=== PATIENT | male | born 1960 | race American Indian/Alaskan Native ===

== ENCOUNTER 2016-12-18 11:12 | Inpatient (IN) | payer OTHER ==
[2016-12-18 11:19] LABS: Basophils % (Auto) 0.4 % (0.0-1.8); Eosinophils % (Auto) 1.2 % (0.0-4.3); Hematocrit 44.5 % (35.5-45.6); Hemoglobin 14.4 gm/dl (11.8-15.2); Mean Corpuscular HGB Conc 32 % (32-34); Mean Corpuscular Hemoglobin 27 pg (28-32); Mean Corpuscular Volume 84 fl (84-94); Platelet Count 177 K/mm3 (140-440); White Blood Count 9.1 K/mm3 (4.5-11.0)
--- NOTE | 2016-12-18 11:26 | Cat Scan Report ---
CT HEAD WITHOUT CONTRAST: HISTORY: Neurological deficit. Serial contiguous axial images were obtained through the cranium. Intravenous contrast material was not administered. The ventricles are normal in size and appearance. There is no mass effect or midline shift. No areas of abnormally increased or decreased attenuation are seen. No mass lesion is seen. The mastoid air cells and visualized portions of the sinuses are normal. Chronic right medial orbital wall fracture is noted. IMPRESSION: No acute intracranial process identified. These findings were discussed with Dr. Monte in the emergency department at 1122 hrs.
[2016-12-18 11:30] LABS: Anion Gap 17 mmol/L; BUN/Creatinine Ratio 14; Blood Urea Nitrogen 14 mg/dL (9-20); Carbon Dioxide 25 mmol/L (22-30); Chloride 102.8 mmol/L (98-107); Glucose 111 mg/dL (75-100); Potassium 4.1 mmol/L (3.6-5.0); Sodium 141 mmol/L (137-145)
[2016-12-18 11:34] LABS: INR 0.95 (0.87-1.13)
[2016-12-18 11:35] LABS: Partial Thromboplastin Time 25.9 Sec. (24.2-36.6)
--- NOTE | 2016-12-18 11:59 | XRay Report ---
AP CHEST: HISTORY: Stroke symptoms, CVA AP view of the chest demonstrates a normal mediastinal and cardiac contour with clear lungs and normal bony and soft tissue structures. IMPRESSION: Unremarkable AP chest.
[2016-12-18] MEDS ORDERED: NACL ONE ×2 (12:14→12:42)
--- NOTE | 2016-12-18 12:46 | Emergency Department Report ---
ED Neuro Deficit HPI - General Chief Complaint: Neuro Symptoms/Deficit Stated Complaint: POSS STROKE Time Seen by Provider: 12/18/16 11:45 Source: EMS Mode of arrival: Stretcher Limitations: Physical Limitation - History of Present Illness Initial Comments: aboriginal liaison officer informs me that the patient was detained last night for outstanding warrants. When the patient awoke at [facility] he was having difficulty with speech and in moving his left side. When he arrives at this facility he is unable to give me any reasonable historical information. He does not tell me his name or his age. His speech is somewhat mumbling and he is not following commands well. Paramedics state that they found him to have a possible left-sided facial weakness and left hemiparesthesias. His glucose was 120. His blood pressure was somewhat elevated in the field but on arrival it was reasonably normotensive after CT and without intervention. -: During the night Location: speech, left face, left arm, left leg Presenting Symptoms: Present: Weak/Paralyzed One Side History of same: No Place: other ([facility]) Severity: severe Quality: numb Improves With: none Worsens With: none On Anticoagulants: No Context: other (wake-up symptoms) Associated Symptoms: other (unable to obtain) Treatments Prior to Arrival: none - Related Data Allergies/Adverse Reactions: Allergies Allergy/AdvReac Type Severity Reaction Status Date / Time No Known Allergies Allergy Unverified 12/18/16 11:12 ED Review of Systems ROS: Stated complaint: POSS STROKE Other details as noted in HPI Comment: Unobtainable due to pts medical conditions ED Past Medical Hx - Past Medical History Previous Medical History?: Yes Additional medical history: stroke x2 no denies deficiets 2012 - Surgical History Past Surgical History?: Yes Additional Surgical History: plate under left eye in cheekbone - Social History Smoking Status: Current Every Day Smoker Substance Use Type: Alcohol ED Neuro Physical Exam - General Limitations: Physical Limitation General appearance: alert, anxious Suspected Stroke: Yes - Head Head exam: Present: atraumatic, normocephalic - Eye Eye exam: Present: normal appearance, other (no gross extraocular motor is the one hallway exam) - ENT ENT exam: Present: mucous membranes moist, other (left eye is somewhat proptotic ) - Neck Neck exam: Present: normal inspection. Absent: tenderness, meningismus - Respiratory Respiratory exam: Present: normal lung sounds bilaterally. Absent: respiratory distress - Cardiovascular Cardiovascular Exam: Present: regular rate, normal rhythm. Absent: systolic murmur, diastolic murmur, rubs, gallop - GI/Abdominal GI/Abdominal exam: Present: soft, normal bowel sounds. Absent: distended, tenderness, guarding, rebound, rigid - Rectal Rectal exam: Present: deferred - Extremities Exam Extremities exam: Present: normal inspection - Back Exam Back exam: Present: normal inspection - Neurological Exam Neurological exam: Present: alert, oriented X3. Absent: CN II-XII intact, motor sensory deficit - NIHSS Assessment Interval: Baseline 1a. Level of Consciousness: alert 1b. LOC Questions: answers no questions correctly 1c. LOC Commands: performs no tasks correctly 2. Best Gaze: normal 3. Visual: no visual loss 4. Facial Palsy: normal symmetrical movement 5b. Motor Arm Right: no drift 5a. Motor Arm Left: drift 6a. Motor Leg Left: drift 6b. Motor Leg Right: no drift 7. Limb Ataxia: absent 8. Sensory: normal 9. Best Language: severe aphasia 10. Dysarthria: mild/moderate dysarthria 11. Extinction/Inattention: no abnormality Total Score: 9 Stroke Severity: Moderate Stroke - Psychiatric Psychiatric exam: Present: normal affect, normal mood - Skin Skin exam: Present: warm, dry, intact, normal color. Absent: rash ED Course Vital Signs 12/18/16 12/18/16 12/18/16 11:15 11:25 11:32 Temperature 98.0 F Pulse Rate 54 L 52 L 55 L Respiratory 12 10 L Rate Blood Pressure 145/88 O2 Sat by Pulse 100 Oximetry 12/18/16 12/18/16 11:45 11:58 Temperature Pulse Rate 55 L Respiratory 12 16 Rate Blood Pressure 145/88 O2 Sat by Pulse 100 Oximetry - Reevaluation(s) Reevaluation #1: Nurses report to me that the patient is here giving a reasonable history. He states that he has a plate in his head due to previous eye trauma. He later amended that telling the nurse the plate is in his eye. There is no plate seen on his CT exam which is also normal without evidence of 2 prior strokes nor anything acute.Informs me that the patient is moving his left side while except his hand now. He was sent for a CT angiogram. It is uncertain to what degree this patient's symptoms are neurological versus conversion. The either case he is not a candidate for TPA due to his wake-up symptoms. I did find it appropriate to do a CT angiogram on the circumstances. He is admitted to Dr. Juarez's service for further stroke workup/telemetry bed. 12/18/16 12:53 - Lab Data Result diagrams: 12/18/16 11:14 12/18/16 11:14 Lab Results 12/18/16 12/18/16 12/18/16 Range/Units 11:14 11:14 11:14 WBC 9.1 (4.5-11.0) K/mm3 RBC 5.30 H (3.65-5.03) M/mm3 Hgb 14.4 (11.8-15.2) gm/dl Hct 44.5 (35.5-45.6) % MCV 84 (84-94) fl MCH 27 L (28-32) pg MCHC 32 (32-34) % RDW 15.0 (13.2-15.2) % Plt Count 177 (140-440) K/mm3 Lymph % (Auto) 37.7 H (13.4-35.0) % [place] % (Auto) 11.0 H (0.0-7.3) % Eos % (Auto) 1.2 (0.0-4.3) % Baso % (Auto) 0.4 (0.0-1.8) % Lymph # 3.4 (1.2-5.4) K/mm3 [place] # 1.0 H (0.0-0.8) K/mm3 Eos # 0.1 (0.0-0.4) K/mm3 Baso # 0.0 (0.0-0.1) K/mm3 Seg Neutrophils % 49.7 (40.0-70.0) % Seg Neutrophils # 4.5 (1.8-7.7) K/mm3 PT 13.2 (12.2-14.9) Sec. INR 0.95 (0.87-1.13) APTT 25.9 (24.2-36.6) Sec. Thrombin Time (15.1-19.6) Sec. Sodium 141 (137-145) mmol/L Potassium 4.1 (3.6-5.0) mmol/L Chloride 102.8 (98-107) mmol/L Carbon Dioxide 25 (22-30) mmol/L Anion Gap 17 mmol/L BUN 14 (9-20) mg/dL Creatinine 1.0 (0.8-1.5) mg/dL Estimated GFR > 60 ml/min BUN/Creatinine Ratio 14 % Glucose 111 H (75-100) mg/dL POC Glucose (70-105) Calcium 9.0 (8.4-10.2) mg/dL Troponin T < 0.010 (0.00-0.029) ng/mL NT-Pro-B Natriuret Pep (0-900) pg/mL 12/18/16 12/18/16 12/18/16 Range/Units 11:14 11:14 11:21 WBC (4.5-11.0) K/mm3 RBC (3.65-5.03) M/mm3 Hgb (11.8-15.2) gm/dl Hct (35.5-45.6) % MCV (84-94) fl MCH (28-32) pg MCHC (32-34) % RDW (13.2-15.2) % Plt Count (140-440) K/mm3 Lymph % (Auto) (13.4-35.0) % [place] % (Auto) (0.0-7.3) % Eos % (Auto) (0.0-4.3) % Baso % (Auto) (0.0-1.8) % Lymph # (1.2-5.4) K/mm3 [place] # (0.0-0.8) K/mm3 Eos # (0.0-0.4) K/mm3 Baso # (0.0-0.1) K/mm3 Seg Neutrophils % (40.0-70.0) % Seg Neutrophils # (1.8-7.7) K/mm3 PT (12.2-14.9) Sec. INR (0.87-1.13) APTT (24.2-36.6) Sec. Thrombin Time 19.7 H (15.1-19.6) Sec. Sodium (137-145) mmol/L Potassium (3.6-5.0) mmol/L Chloride (98-107) mmol/L Carbon Dioxide (22-30) mmol/L Anion Gap mmol/L BUN (9-20) mg/dL Creatinine (0.8-1.5) mg/dL Estimated GFR ml/min BUN/Creatinine Ratio % Glucose (75-100) mg/dL POC Glucose 104 (70-105) Calcium (8.4-10.2) mg/dL Troponin T (0.00-0.029) ng/mL NT-Pro-B Natriuret Pep 42.45 (0-900) pg/mL Critical Care Time: Yes Critical care time in (mins) excluding proc time.: 50 Critical care attestation.: If time is entered above; I have spent that time in minutes in the direct care of this critically ill patient, excluding procedure time. ED Disposition Clinical Impression: CVA (cerebral vascular accident) Qualifiers: CVA mechanism: unspecified Qualified Code(s): I63.9 - Cerebral infarction, unspecified Hypertension Qualifiers: Hypertension type: essential hypertension Qualified Code(s): I10 - Essential ( primary) hypertension Disposition: 09 OP ADMIT IP TO THIS HOSP Is pt being admited?: Yes Does the pt Need Aspirin: Yes Condition: Stable Instructions: Hypertension (ED) Time of Disposition: 12:55
[2016-12-18] MEDS: ASPIRIN PO SCH (13:03)
--- NOTE | 2016-12-18 13:10 | Cat Scan Report ---
CTA NECK: CTA HEAD HISTORY: Left hemiparesis, aphasia. TECHNIQUE: Helical CT following IV contrast. Sagittal and coronal reformatted images. 3D volume rendering technique. Stenosis was calculated using NASCET criteria. FINDINGS: The visualized aortic arch, innominate artery and proximal bilateral subclavian arteries are widely patent with less than 20% stenosis. Within the right carotid system: There is no significant atherosclerotic disease. Less than 10% stenosis. Within the left carotid system: There is no significant atherosclerotic disease. At less than 10% stenosis. The cervical vertebral arteries are patent with less than 20% stenosis. The anterior, middle and posterior cerebral arteries are patent with less than 20% stenosis. No large vessel occlusion or aneurysm is identified. IMPRESSION: Unremarkable CTA of the neck. Unremarkable CT of the head.
[2016-12-18] MEDS ORDERED: ZOFRAN IV PRN ×2 (15:18→15:35)
[2016-12-18] MEDS ORDERED: PERCOCET 5/325 PO PRN (15:18)
[2016-12-18] MEDS ORDERED: DULCOLAX PR PRN ×2 (15:18→15:35)
[2016-12-18] MEDS ORDERED: TYLENOL PO PRN ×2 (15:18→15:35)
[2016-12-18] MEDS ORDERED: MILK OF MAGNESIA PO PRN ×2 (15:18→15:35)
[2016-12-18] MEDS ORDERED: DILAUDID IV PRN (15:18)
--- NOTE | 2016-12-18 15:18 | History and Physical Report ---
History of Present Illness Date of examination: 12/18/16 Date of admission: 12/18/16 12:58 Chief complaint: CC: L side weakness for 1 hr this am - resolved completely. History of present illness: GULKANA: 56 y/o AAM with pmh of apparent stroke in 2012 from which he has recovered completely comes in for L sided weakness this am lasting for 1 hr.Resolved completely.He was in [facility] since last night and was released this afternoon.Patient very poor Historian.No deficits /weakness now. Past History Past Medical History: stroke Past Surgical History: Other (Plate in cheek bone) Medications and Allergies Allergies Allergy/AdvReac Type Severity Reaction Status Date / Time No Known Allergies Allergy Unverified 12/18/16 11:12 Home Medications Medication Instructions Recorded Confirmed Last Taken Type No Known Home Medications [No 12/18/16 12/18/16 Unknown History Reported Home Medications] Active Meds: Active Medications Aspirin (Aspirin) 325 mg PO QDAY SHANTANU Last Admin: 12/18/16 13:03 Dose: 325 mg Review of Systems All systems: negative Exam - Physical Exam Narrative exam: Lying comfortably - Constitutional Vitals: Temp Pulse Resp BP Pulse Ox 98.0 F 60 20 135/64 98 12/18/16 11:15 12/18/16 15:00 12/18/16 15:00 12/18/16 15:00 12/18/16 15:00 General appearance: Present: no acute distress, well-nourished - EENT Eyes: Present: PERRL ENT: hearing intact, clear oral mucosa - Neck Neck: Present: supple, normal ROM - Respiratory Respiratory effort: normal Respiratory: bilateral: CTA - Cardiovascular Heart Sounds: Present: S1 & S2. Absent: rub, click - Extremities Extremities: pulses symmetrical, No edema Peripheral Pulses: within normal limits - Abdominal General gastrointestinal: Present: soft, non-tender, non-distended, normal bowel sounds Male genitourinary: Present: normal - Integumentary Integumentary: Present: clear, warm, dry - Musculoskeletal Musculoskeletal: gait normal, strength equal bilaterally - Psychiatric Psychiatric: appropriate mood/affect, intact judgment & insight - Neurologic Neurologic: CNII-XII intact, moves all extremities Results - Labs CBC & Chem 7: 12/19/16 03:51 12/19/16 03:51 Labs: Laboratory Last Values WBC 9.1 K/mm3 (4.5-11.0) 12/18/16 11:14 RBC 5.30 M/mm3 (3.65-5.03) H 12/18/16 11:14 Hgb 14.4 gm/dl (11.8-15.2) 12/18/16 11:14 Hct 44.5 % (35.5-45.6) 12/18/16 11:14 MCV 84 fl (84-94) 12/18/16 11:14 MCH 27 pg (28-32) L 12/18/16 11:14 MCHC 32 % (32-34) 12/18/16 11:14 RDW 15.0 % (13.2-15.2) 12/18/16 11:14 Plt Count 177 K/mm3 (140-440) 12/18/16 11:14 Lymph % (Auto) 37.7 % (13.4-35.0) H 12/18/16 11:14 [place] % (Auto) 11.0 % (0.0-7.3) H 12/18/16 11:14 Eos % (Auto) 1.2 % (0.0-4.3) 12/18/16 11:14 Baso % (Auto) 0.4 % (0.0-1.8) 12/18/16 11:14 Lymph # 3.4 K/mm3 (1.2-5.4) 12/18/16 11:14 [place] # 1.0 K/mm3 (0.0-0.8) H 12/18/16 11:14 Eos # 0.1 K/mm3 (0.0-0.4) 12/18/16 11:14 Baso # 0.0 K/mm3 (0.0-0.1) 12/18/16 11:14 Seg Neutrophils % 49.7 % (40.0-70.0) 12/18/16 11:14 Seg Neutrophils # 4.5 K/mm3 (1.8-7.7) 12/18/16 11:14 PT 13.2 Sec. (12.2-14.9) 12/18/16 11:14 INR 0.95 (0.87-1.13) 12/18/16 11:14 APTT 25.9 Sec. (24.2-36.6) 12/18/16 11:14 Thrombin Time 19.7 Sec. (15.1-19.6) H 12/18/16 11:14 Sodium 141 mmol/L (137-145) 12/18/16 11:14 Potassium 4.1 mmol/L (3.6-5.0) 12/18/16 11:14 Chloride 102.8 mmol/L (98-107) 12/18/16 11:14 Carbon Dioxide 25 mmol/L (22-30) 12/18/16 11:14 Anion Gap 17 mmol/L 12/18/16 11:14 BUN 14 mg/dL (9-20) 12/18/16 11:14 Creatinine 1.0 mg/dL (0.8-1.5) 12/18/16 11:14 Estimated GFR > 60 ml/min 12/18/16 11:14 BUN/Creatinine Ratio 14 % 12/18/16 11:14 Glucose 111 mg/dL (75-100) H 12/18/16 11:14 POC Glucose 104 (70-105) 12/18/16 11:21 Calcium 9.0 mg/dL (8.4-10.2) 12/18/16 11:14 Troponin T < 0.010 ng/mL (0.00-0.029) 12/18/16 11:14 NT-Pro-B Natriuret Pep 42.45 pg/mL (0-900) 12/18/16 11:14 - Imaging and Cardiology EKG: report reviewed (Sinus bradycardia) Assessment and Plan Advance Directives: Yes (FC) VTE prophylaxis?: Chemical Plan of care discussed with patient/family: Yes - Patient Problems (1) Hypertension Current Visit: Yes Status: Chronic Qualifiers: Hypertension type: essential hypertension Qualified Code(s): I10 - Essential (primary) hypertension Plan to address problem: Add coreg (2) TIA (transient ischemic attack) Current Visit: Yes Status: Acute Qualifiers: Transient cerebral ischemia type: carotid artery syndrome (hemispheric) Qualified Code(s): G45.1 - Carotid artery syndrome (hemispheric) Plan to address problem: W/u initiated Secondary gain due to being in prison suspected (3) DVT prophylaxis Current Visit: Yes Status: Acute Plan to address problem: on lovenox
[2016-12-18] MEDS ORDERED: SODIUM CHLORIDE FLUSH SYRINGE 10 ML IV PRN (15:35)
[2016-12-18] MEDS ORDERED: REGLAN PO PRN (15:35)
[2016-12-18] MEDS ORDERED: PHENERGAN PR PRN (15:35)
[2016-12-18] MEDS ORDERED: NACL 0.45% 1000 ML 1,000 ML IV SCH (16:00)
[2016-12-18] MEDS ORDERED: AMBIEN PO PRN (22:00)
[2016-12-18] MEDS ORDERED: ZOCOR PO SCH (22:00)
[2016-12-18] MEDS: PEPCID PO SCH (22:22)
[2016-12-19 04:33] LABS: Basophils % (Auto) 0.4 % (0.0-1.8); Eosinophils % (Auto) 1.5 % (0.0-4.3); Hematocrit 40.9 % (35.5-45.6); Hemoglobin 13.8 gm/dl (11.8-15.2); Mean Corpuscular HGB Conc 34 % (32-34); Mean Corpuscular Hemoglobin 28 pg (28-32); Mean Corpuscular Volume 83 fl (84-94); Platelet Count 154 K/mm3 (140-440); Red Blood Count 4.93 M/mm3 (3.65-5.03); Red Cell Distribution Width 14.8 % (13.2-15.2); White Blood Count 6.8 K/mm3 (4.5-11.0)
[2016-12-19 04:38] LABS: Alanine Aminotransferase 18 units/L (7-56); Albumin 3.7 g/dL (3.9-5); Albumin/Globulin Ratio 1.3 %; Alkaline Phosphatase 57 units/L (35-129); Anion Gap 17 mmol/L; BUN/Creatinine Ratio 17; Blood Urea Nitrogen 15 mg/dL (9-20); Calcium 8.6 mg/dL (8.4-10.2); Carbon Dioxide 24 mmol/L (22-30); Chloride 107.4 mmol/L (98-107); Cholesterol 191 mg/dL (50-199); Glucose 115 mg/dL (75-100); HDL Cholesterol 44 mg/dL (40-59); LDL Cholesterol,Direct 126 mg/dL (50-130); Potassium 4.2 mmol/L (3.6-5.0); Sodium 144 mmol/L (137-145); Total Protein 6.6 g/dL (6.3-8.2); Triglycerides 107 mg/dL (2-149)
[2016-12-19] MEDS ORDERED: ATIVAN IV ONE (09:00)
--- NOTE | 2016-12-19 09:01 | Progress Note ---
Assessment and Plan Assessment and plan: 56 y/o AAM with pmh of apparent stroke in 2012 from which he has recovered completely comes in for L sided weakness this am lasting for 1 hr.Resolved completely.[facility] and was released this afternoon.Patient very poor Historian.No deficits /weakness now. (1) Hypertension Current Visit: Yes Status: Chronic Qualifiers: Hypertension type: essential hypertension Qualified Code(s): I10 - Essential (primary) hypertension Plan to address problem: Add coreg (2) TIA (transient ischemic attack) Current Visit: Yes Status: Acute Qualifiers: Transient cerebral ischemia type: carotid artery syndrome (hemispheric) Qualified Code(s): G45.1 - Carotid artery syndrome (hemispheric) Plan to address problem: W/u initiated Secondary gain due to being in long term suspected (3) DVT prophylaxis Current Visit: Yes Status: Acute Plan to address problem: on lovenox Hospitalist Physical - Constitutional Vitals: Temp Pulse Resp BP Pulse Ox 97.9 F 50 L 20 122/80 96 12/19/16 05:42 12/19/16 05:49 12/19/16 05:42 12/19/16 05:42 12/19/16 05:42 General appearance: Present: no acute distress, well-nourished Results - Labs CBC & Chem 7: 12/19/16 03:51 12/19/16 03:51 Labs: Laboratory Last Values WBC 6.8 K/mm3 (4.5-11.0) 12/19/16 03:51 RBC 4.93 M/mm3 (3.65-5.03) 12/19/16 03:51 Hgb 13.8 gm/dl (11.8-15.2) 12/19/16 03:51 Hct 40.9 % (35.5-45.6) 12/19/16 03:51 MCV 83 fl (84-94) L 12/19/16 03:51 MCH 28 pg (28-32) 12/19/16 03:51 MCHC 34 % (32-34) 12/19/16 03:51 RDW 14.8 % (13.2-15.2) 12/19/16 03:51 Plt Count 154 K/mm3 (140-440) 12/19/16 03:51 Lymph % (Auto) 43.2 % (13.4-35.0) H 12/19/16 03:51 [place] % (Auto) 10.5 % (0.0-7.3) H 12/19/16 03:51 Eos % (Auto) 1.5 % (0.0-4.3) 12/19/16 03:51 Baso % (Auto) 0.4 % (0.0-1.8) 12/19/16 03:51 Lymph # 2.9 K/mm3 (1.2-5.4) 12/19/16 03:51 [place] # 0.7 K/mm3 (0.0-0.8) 12/19/16 03:51 Eos # 0.1 K/mm3 (0.0-0.4) 12/19/16 03:51 Baso # 0.0 K/mm3 (0.0-0.1) 12/19/16 03:51 Seg Neutrophils % 44.4 % (40.0-70.0) 12/19/16 03:51 Seg Neutrophils # 3.0 K/mm3 (1.8-7.7) 12/19/16 03:51 PT 13.2 Sec. (12.2-14.9) 12/18/16 11:14 INR 0.95 (0.87-1.13) 12/18/16 11:14 APTT 25.9 Sec. (24.2-36.6) 12/18/16 11:14 Thrombin Time 19.7 Sec. (15.1-19.6) H 12/18/16 11:14 Sodium 144 mmol/L (137-145) 12/19/16 03:51 Potassium 4.2 mmol/L (3.6-5.0) 12/19/16 03:51 Chloride 107.4 mmol/L (98-107) H 12/19/16 03:51 Carbon Dioxide 24 mmol/L (22-30) 12/19/16 03:51 Anion Gap 17 mmol/L 12/19/16 03:51 BUN 15 mg/dL (9-20) 12/19/16 03:51 Creatinine 0.9 mg/dL (0.8-1.5) 12/19/16 03:51 Estimated GFR > 60 ml/min 12/19/16 03:51 BUN/Creatinine Ratio 17 % 12/19/16 03:51 Glucose 115 mg/dL (75-100) H 12/19/16 03:51 POC Glucose 104 (70-105) 12/18/16 11:21 Calcium 8.6 mg/dL (8.4-10.2) 12/19/16 03:51 Total Bilirubin 0.30 mg/dL (0.1-1.2) 12/19/16 03:51 AST 16 units/L (5-40) 12/19/16 03:51 ALT 18 units/L (7-56) 12/19/16 03:51 Alkaline Phosphatase 57 units/L (35-129) 12/19/16 03:51 Troponin T < 0.010 ng/mL (0.00-0.029) 12/18/16 11:14 NT-Pro-B Natriuret Pep 42.45 pg/mL (0-900) 12/18/16 11:14 Total Protein 6.6 g/dL (6.3-8.2) 12/19/16 03:51 Albumin 3.7 g/dL (3.9-5) L 12/19/16 03:51 Albumin/Globulin Ratio 1.3 % 12/19/16 03:51 Triglycerides 107 mg/dL (2-149) 12/19/16 03:51 Cholesterol 191 mg/dL (50-199) 12/19/16 03:51 LDL Cholesterol Direct 126 mg/dL (50-130) 12/19/16 03:51 HDL Cholesterol 44 mg/dL (40-59) 12/19/16 03:51 Cholesterol/HDL Ratio 4.34 % 12/19/16 03:51
--- NOTE | 2016-12-19 09:06 | Discharge Summary ---
Providers - Providers Date of Admission: 12/18/16 12:58 Attending physician: ANGI JOHNSON MD 12/18/16 15:35 Consult to Case Management [CONS] Routine Services Needed at Discharge: Home Health Services Notified:: y Was contact made?: Yes Consult to Dietitian/Nutrition [CONS] Routine Physician Instructions: Reason For Exam: Reason for Consult: Nutrition Recommendations Reason for Consult: Diet education Occupational Therapy Evaluate and Treat [CONS] Routine Comment: Reason For Exam: Neuro deficits Physical Therapy Evaluation and Treat [CONS] Routine Comment: Reason For Exam: Neuro deficits Primary care physician: FISH NET MAKER Hospitalization Condition: Stable Hospital course: 56 y/o AAM with pmh of apparent stroke in 2012 from which he has recovered completely comes in for L sided weakness this am lasting for 1 hr.Resolved completely.[facility] and was released this afternoon.Patient very poor Historian.No deficits /weakness now. (1) Hypertension Current Visit: Yes Status: Chronic Qualifiers: Hypertension type: essential hypertension Qualified Code(s): I10 - Essential (primary) hypertension Plan to address problem: Add coreg (2) TIA (transient ischemic attack) Current Visit: Yes Status: Acute Qualifiers: Transient cerebral ischemia type: carotid artery syndrome (hemispheric) Qualified Code(s): G45.1 - Carotid artery syndrome (hemispheric) Plan to address problem: W/u initiated Secondary gain due to being in [facility] suspected (3) DVT prophylaxis Current Visit: Yes Status: Acute Plan to address problem: on lovenox Disposition: DC-01 TO HOME OR SELFCARE Time spent for discharge: 33 minutes Core Measure Documentation - Palliative Care Palliative Care/ Comfort Measures: Not Applicable - Core Measures Any of the following diagnoses?: none Exam - Constitutional Vitals: Temp Pulse Resp BP Pulse Ox 97.9 F 50 L 20 122/80 96 12/19/16 05:42 12/19/16 05:49 12/19/16 05:42 12/19/16 05:42 12/19/16 05:42 General appearance: Present: no acute distress, well-nourished - EENT Eyes: Present: PERRL ENT: hearing intact, clear oral mucosa - Neck Neck: Present: supple, normal ROM - Respiratory Respiratory effort: normal Respiratory: bilateral: CTA - Cardiovascular Heart Sounds: Present: S1 & S2. Absent: rub, click - Extremities Extremities: pulses symmetrical, No edema Peripheral Pulses: within normal limits - Abdominal General gastrointestinal: Present: soft, non-tender, non-distended, normal bowel sounds Male genitourinary: Present: normal - Integumentary Integumentary: Present: clear, warm, dry - Musculoskeletal Musculoskeletal: gait normal, strength equal bilaterally - Psychiatric Psychiatric: appropriate mood/affect, intact judgment & insight - Neurologic Neurologic: CNII-XII intact, moves all extremities Plan Follow up with: PRIMARY CARE, [Primary Care Provider] - 3-5 Days Prescriptions: Simvastatin [Zocor TAB] 20 mg PO QHS #30 tablet
[2016-12-19] MEDS: ASPIRIN PO SCH (14:08)
[2016-12-19] MEDS: PEPCID PO SCH (14:08)
[2016-12-19 15:26] VITALS: BP 124/81
== END 2016-12-19 19:00 | disposition home or self-care (01) | DRG 69 ==
LOC: ED 11:12 → 4A 12:58
PROVIDERS: ADMIT Internal Medicine; ATTEND Internal Medicine
DX: G45.9 Transient cerebral ischemic attack, unspecified (principal); I10 Essential (primary) hypertension; Z79.82 Long term (current) use of aspirin; R00.1 Bradycardia, unspecified
CPT/HCPCS: 36415; 70450; 70496; 70498; 71010; 80048; 80053; 80061; 82962; 83880; 84484; 85025; 85610; 85670; 85730; 93005; 93010; 93880; Q9967